=== PATIENT | male | born 1970 | race Two or more races ===

== ENCOUNTER 2017-10-28 12:18 | Inpatient (IN) | payer OTHER ==
[~2017-10-28] VITALS: Ht 180.3 cm; Wt 109.8 kg
[2017-10-28] MEDS ORDERED: HUMULIN 70100 UNIT/2 SUBCUTANEO (12:50)
[2017-10-28] MEDS ORDERED: JANUMET XR 50-1 EAC1 PO (12:51)
[2017-10-28] MEDS ORDERED: COZAAR100 MG PO (12:51)
[2017-10-28] MEDS ORDERED: LIPITOR40 MG PO (12:51)
[2017-10-28] MEDS ORDERED: GLIPIZIDE ER10 MG PO (12:51)
== END 2017-11-05 10:30 | disposition home or self-care (01) | DRG 658 ==
LOC: SURG 11-03 05:42 → O/R 11-03 05:42 → SURG 11-03 14:59
PROVIDERS: Urology
PROC: 0TT74ZZ Resection of Left Ureter, Percutaneous Endoscopic Approach (ICD-10-PCS; 2017-11-03)
PROC: 0GT24ZZ Resection of Left Adrenal Gland, Percutaneous Endoscopic Approach (ICD-10-PCS; 2017-11-03)
PROC: 0TT14ZZ Resection of Left Kidney, Percutaneous Endoscopic Approach (ICD-10-PCS; principal; 2017-11-03 07:00)
DX: C64.2 Malignant neoplasm of left kidney, except renal pelvis (principal); I11.9 Hypertensive heart disease without heart failure; I25.10 Atherosclerotic heart disease of native coronary artery without angina pectoris

== ENCOUNTER 2018-08-09 08:15 | Outpatient (CLI) | payer OTHER ==
[~2018-08-09 08:15] MED LIST: COZAAR100 MG PO; GLIPIZIDE ER10 MG PO; HUMULIN 70100 UNIT/2 SUBCUTANEO; JANUMET XR 50-1 EAC1 PO; LIPITOR40 MG PO
== END 2018-08-09 15:34 | disposition home or self-care (01) ==
LOC: MRI 08:15
DX: C64.2 Malignant neoplasm of left kidney, except renal pelvis (principal); M77.12 Lateral epicondylitis, left elbow
CPT/HCPCS: 74181

== ENCOUNTER 2020-07-15 09:09 | Emergency (ER) | payer OTHER ==
[~2020-07-15] VITALS: Ht 180.3 cm; Wt 106.6 kg
== END 2020-07-15 16:36 | disposition home or self-care (01) ==
LOC: ER 09:09
DX: R10.84 Generalized abdominal pain (principal); R11.2 Nausea with vomiting, unspecified; Z03.818 Encounter for observation for suspected exposure to other biological agents ruled out